=== PATIENT | female | born 1975 | race Caucasian/White ===

== ENCOUNTER 2017-09-02 14:51 | Emergency (ER) | payer OTHER ==
[~2017-09-02] VITALS: Ht 157.5 cm; Wt 103.4 kg
[~2017-09-02 14:51] MED LIST: COLACE100 MG PO; FLA500 PO; LAC PO; LEVAQUIN750 MG PO; NORCO1 TA1 PO
[2017-09-02 16:32] LABS: PLATELET COUNT 217 x10^3mcL (130-400); RED CELL DISTRIBUTION WIDTH 12.6 % (11.5-14.5)
[2017-09-02 16:38] LABS: CALCIUM 8.2 mg/dL (8.5-10.1); CARBON DIOXIDE 26.3 mmol/L (21-32); CHLORIDE SERUM 106 mmol/L (98-107); CREATININE SERUM 0.5 mg/dL (0.6-1.0); GFR1 > 60 mL/min; GLUCOSE SERUM 100 mg/dL (74-106); POTASSIUM SERUM 3.6 mmol/L (3.5-5.1); SODIUM SERUM 140 mmol/L (136-145)
[2017-09-02 16:43] LABS: ALBUMIN 3.4 g/dL (3.4-5.0); ALKALINE PHOSPHATASE 53 U/L (46-116); ALT/SGPT 23 U/L (14-59); AMYLASE 74 U/L (25-115); AST/SGOT 19 U/L (15-37); BILIRUBIN TOTAL 0.27 mg/dL (0.20-1.00); LIPASE 97 IU/L (73-393)
[2017-09-02 17:06] LABS: UA SPECIFIC GRAVITY >=1.030 (1.005-1.035); microscopic required? YES; urine erythrocyte NEGATIVE (NEGATIVE)
[2017-09-02 17:14] LABS: AMPHETAMINE QUAL UR NONE DETECTED (NEG <=1000)
[2017-09-02 18:00] VITALS: BP 120/76
== END 2017-09-02 18:00 | disposition home or self-care (01) ==
LOC: ED 14:51
PROVIDERS: Emergency Medicine
DX: N39.0 Urinary tract infection, site not specified (principal)
CPT/HCPCS: 83880; J1885; J2270; J2405; J7040; Q9967

== ENCOUNTER 2017-09-07 00:02 | Emergency (ER) | payer OTHER ==
[2017-09-07 03:03] VITALS: BP 148/96
== END 2017-09-07 03:03 | disposition home or self-care (01) ==
LOC: ED 00:02
DX: N12 Tubulo-interstitial nephritis, not specified as acute or chronic (principal)
CPT/HCPCS: J1885; Q0162

== ENCOUNTER 2019-01-24 08:51 | Emergency (ER) | payer SELFPAY ==
[~2019-01-24] VITALS: Ht 157.5 cm; Wt 95.3 kg
[2019-01-24 08:58] VITALS: Ht 157.5 cm; Wt 95.3 kg
[2019-01-24 11:14] VITALS: BP 136/72
== END 2019-01-24 11:14 | disposition home or self-care (01) ==
LOC: ED 08:51
DX: M54.42 Lumbago with sciatica, left side (principal)
CPT/HCPCS: J1885

== ENCOUNTER 2019-06-14 03:54 | Emergency (ER) | payer OTHER ==
[~2019-06-14] VITALS: Ht 157.5 cm; Wt 112.0 kg
[2019-06-14 03:59] VITALS: Ht 157.5 cm; Wt 112.0 kg
[2019-06-14 05:53] VITALS: BP 104/52
== END 2019-06-14 05:53 | disposition home or self-care (01) ==
LOC: ED 03:54
DX: R11.2 Nausea with vomiting, unspecified (principal); R07.89 Other chest pain; R42 Dizziness and giddiness; Z98.51 Tubal ligation status
CPT/HCPCS: J1885; Q0162